=== PATIENT | female | born 1955 | race Caucasian/White ===

== ENCOUNTER 2018-11-06 15:30 | Day surgery (SDC) | payer OTHER ==
[~2018-11-06] VITALS: Ht 167.6 cm; Wt 86.7 kg
[2018-11-06] VITALS (11 sets, daily range): BP systolic 106–129; BP diastolic 54–85; PULSE 60–98; RESP 10–23; Ht 167.6 cm; Wt 86.7 kg
--- NOTE | 2018-11-06 16:31 | HPN ---
Date/Time of Note Date/Time of Note DATE: 11/06/18 TIME: 16:31 Interval H&P Admission Note Pt. seen H&P reviewed: No system changes JADYN EISENBERG Nov 06, 2018 16:31
[2018-11-06] MEDS ORDERED: BUPIVACAINE 0.5% (SDV) 30 ML INJ ONE (16:54)
[2018-11-06] MEDS ORDERED: LIDOCAINE 1% (MPF) 30 ML INJ ONE (16:54)
[2018-11-06] MEDS ORDERED: LACTATED RINGER'S 1,000 ML IV SCH (17:00)
--- NOTE | 2018-11-06 17:02 | PREAC ---
Date/Time of Note Date/Time of Note DATE: 11/06/18 TIME: 17:00 Anesthesia Eval and Record Evaluation Time Pre-Procedure Interview DATE: 11/06/18 TIME: 17:00 Age 63 Sex female NPO: 8 hrs Preoperative diagnosis Right Distal Radius Fracture Planned procedure Right Radius ORIF Past Medical History Past Medical History: Includes Psych: Other (Hx of Drug Abuse years ago) Surgery & Anesthesia Issues No known issue Meds Anticoagulation: No Beta Yarelis within 24 hr: No Reason Beta Yarelis not given: Pt. not on B-Yarelis No Active Prescriptions or Reported Meds Meds reviewed: Yes Allergies Coded Allergies: No Known Drug Allergies (Verified Allergy, Unknown, 11/06/18) Allergies Reviewed: Yes Labs/Studies Labs Reviewed: Reviewed by anesthesiologist test: N/A Studies: ECG (n/a), CXR (n/a) Pre-procedure Exam Last vitals Vital Signs Date Temp Pulse Resp B/P (MAP) Pulse Ox O2 O2 Flow FiO2 Time Delivery Rate 11/06/18 98.7 87 16 118/85 92 Room Air 16:54 (96) Airway: Adequate mouth opening, Adequate thyromental dist Mallampati: Mallampati II Teeth: Normal Lung: Normal Heart: Normal ASA Physical Status ASA physical status: 2 Emergency: None Planned Anesthetic General/MAC: LMA Nerve block: Brachial plexus (right) Planned Pain Management Single shot nerve block, Parenteral pain med Pre-operative Attestations Prior to commencing anesthesia and surgery, the patient was re-evaluated, there was verification of: *The patient's identity *The results of appropriate recent lab work and preoperative vital signs *The above evaluation not changing prior to induction *Anesthetic plan, risk benefits, alternative and complications discussed with patient/family; questions answered; patient/family understands, accepts and wishes to proceed. ESCOBAR WOO MD Nov 06, 2018 17:02
[2018-11-06] MEDS ORDERED: PROPOFOL 20 ML ONE (17:05)
[2018-11-06] MEDS ORDERED: MIDAZOLAM 1 MG/ML 2 ML INJ ONE (17:05)
[2018-11-06] MEDS ORDERED: CEFAZOLIN 1 GM INJ ONE (17:05)
[2018-11-06] MEDS ORDERED: ROPIVACAINE 0.5 % 30 ML VIAL ONE (17:05)
[2018-11-06] MEDS ORDERED: FENTAnyl 50 MCG/ML VIAL ONE (17:05)
[2018-11-06] MEDS ORDERED: ROCURONIUM 50 MG INJ ONE (17:05)
[2018-11-06] MEDS ORDERED: METOCLOPRAMIDE 10 MG INJ IV PRN (17:30)
[2018-11-06] MEDS ORDERED: FENTAnyl 50 MCG/ML VIAL IV PRN ×3 (17:30)
[2018-11-06] MEDS ORDERED: EPHEDrine 25 MG/5 ML SYG IV PRN (17:30)
[2018-11-06] MEDS ORDERED: LABETALOL HCL 20MG INJ IV PRN (17:30)
[2018-11-06] MEDS ORDERED: hydrALAzine 20 MG INJ IV PRN (17:30)
[2018-11-06] MEDS ORDERED: ONDANSETRON 4 MG INJ IV PRN (17:30)
[2018-11-06] MEDS ORDERED: HYDROmorphONE 1 MG/5 ML IV SYRINGE IV PRN ×3 (17:30)
[2018-11-06] MEDS ORDERED: OXYCODONE/ACETAMINOPHEN (5/325) TAB PO PRN (17:30)
[2018-11-06] MEDS ORDERED: ONDANSETRON 4 MG INJ ONE (18:24)
[2018-11-06] MEDS ORDERED: METOCLOPRAMIDE 10 MG INJ ONE (18:24)
[2018-11-06] MEDS ORDERED: KETOROLAC 30 MG INJ ONE (18:24)
[2018-11-06] MEDS ORDERED: DEXAMETHASONE 4 MG/ML 5 ML INJ ONE (18:24)
[2018-11-06] MEDS ORDERED: GLYCOPYRROLATE 0.4 MG INJ ONE (18:36)
[2018-11-06] MEDS ORDERED: NEOSTIGMINE 3 MG/3 ML SYRINGE ONE (18:36)
--- NOTE | 2018-11-06 18:48 | PAC ---
Date/Time of Note Date/Time of Note DATE: 11/06/18 TIME: 18:47 Post-Anesthesia Notes Post-Anesthesia Note Last documented vital signs Vital Signs Date Temp Pulse Resp B/P (MAP) Pulse Ox O2 O2 Flow FiO2 Time Delivery Rate 11/06/18 98.2 87 16 118/85 92 Room Air 18:46 (96) Activity: WNL Respiratory function: WNL Cardiovascular function: WNL Mental status: Baseline Pain reasonably controlled: Yes Hydration appropriate: Yes Nausea/Vomiting absent: Yes ESCOBAR WOO MD Nov 06, 2018 18:48
--- NOTE | 2018-11-06 18:50 | OPPN ---
Date/Time of Note Date/Time of Note DATE: 11/06/18 TIME: 18:42 Operative Report Preoperative Diagnosis Right distal radius fracture, intra-articular, greater than three fragments Right carpal tunnel syndrome Postoperative Diagnosis Right distal radius fracture, intra-articular, greater than three fragments Right carpal tunnel syndrome Operation/Procedure Performed ORIF Right distal radius fracture, intra-articular, greater than three fragments Lengthening right wrist brachioradialis tendon Right carpal tunnel release, open Surgeon see signature line registrar assistant none Anesthesia: general Estimated blood loss: 0 - 10 ml's Transfusion Required none Specimen none Grafts/Implants none Complications none JADYN EISENBERG Nov 06, 2018 18:50
--- NOTE | 2018-11-07 05:55 | OPR ---
DATE OF OPERATION: 11/06/2018 SURGEON: Jadyn Dueñas MD ANESTHESIA: General. PREOPERATIVE DIAGNOSES: 1. Right distal radius fracture, intra-articular, greater than 3 fragments. 2. Right carpal tunnel syndrome. POSTOPERATIVE DIAGNOSES: 1. Right distal radius fracture, intraarticular, greater than 3 fragments. 2. Right carpal tunnel syndrome. PROCEDURE: 1. Open reduction internal fixation right distal radius fracture, intra-articular, greater than 3 fr agments. 2. Lengthening the right wrist, brachioradialis tendon. 3. Right carpal tunnel release, open. OPERATIVE FINDINGS: Displaced intra-articular distal radius fracture with swelling at the carpal can al. INDICATION FOR PROCEDURE: A 63-year-old female with injury to the right wrist. She was seen in [facility] and diagnosed with displaced distal radius fracture. We discussed the options, the patient electe d to proceed with surgical intervention, understanding the risks and benefits. DESCRIPTION OF PROCEDURE: The patient was seen in the preoperative area and all further questions we re answered. Again, she gave informed consent understanding risks and benefits. She was taken to [facility] operative suite and placed in supine position. She was placed under general anesthesia and anesthe samira team performed a peripheral nerve block. Ancef 2 grams IV given and right upper extremity was pr epped with ChloraPrep stick and draped in usual sterile fashion. Esmarch bandage was used to exsangu inate the extremity and tourniquet inflated to 250 mmHg. Attention was first turned to the distal ra dius in a modified volar [place] approach to the distal radius was utilized with sharp dissection nelson ed down through skin and subcutaneous tissue. The FCR sheath was incised. The FCR tendon, retracted ulnarly. FCR subsheath incised. The FPL tendon retracted ulnarly. The pronator quadratus was elev ated off the radial and distal borders of the radius and the fracture site was identified. The fract ure was displaced radially and a lengthening of the brachioradialis tendon was performed using Bovie electrocautery, as well as a 15-blade knife at the level of the radial styloid. After lengthening of the brachioradialis tendon, I was able to reduce the fracture into a more anatomic position and x-ra y imaging showed appropriate bony alignment. A [employer] volar distal radius plate was placed across the fracture site and cortical and locking screws were placed proximally and distally. X-ray imaging showed appropriate hardware placement and bony alignment. Additional cortical locking screws were p laced proximally and distally. The wound was copiously irrigated. Skin closed with 4-0 nylon. Atte ntion was then turned to the carpal tunnel and a 2 cm incision at the base of the palm was utilized w ith sharp dissection carried down through skin and subcutaneous tissue. The palmar aponeurosis was i ncised along its ulnar border and retractors were deepened. The transverse carpal ligament was divid ed along its ulnar border approximately 3 mm radial to the hook of the hamate. Retractor was placed proximally and distally, and the proximal and distal extents transverse carpal ligament were divided under direct visualization. Wound was copiously irrigated. Skin closed with 5-[address]ced over the wounds followed by sterile gauze, Webril, and a short arm splint. Tourniquet deflated after 37 minutes. The patient was awakened from anesthesia. She was taken the postoperative suite i n stable condition, tolerated procedure well without complication. SPECIMENS: None. ESTIMATED BLOOD LOSS: 5 mL. COUNTS: Sponge, instrument, needle counts correct. TOURNIQUET TIME: 37 minutes. CONDITION ON DISCHARGE: Stable. The patient was given a nonrefillable 5-day prescription for pain medication for surgery today. Dictated By: JADYN GOSS/MYCAHL Conf#: [id number] DID#: [id number]
== END 2018-11-06 19:56 | disposition home or self-care (01) ==
LOC: SDS 15:30
PROVIDERS: ATTEND Orthopaedic Surgery Hand Surgery
DX: S52.571A Other intraarticular fracture of lower end of right radius, initial encounter for closed fracture (principal); G56.01 Carpal tunnel syndrome, right upper limb; X58.XXXA Exposure to other specified factors, initial encounter; Y93.89 Activity, other specified; Y92.89 Other specified places as the place of occurrence of the external cause; Y99.8 Other external cause status
CPT/HCPCS: 25280; 25609; 64721; 73110; C1713; J0690; J1100; J1885; J2250; J2405; J2710; J2765; J2795; J3010